=== PATIENT | female | born 1970 | race Caucasian/White ===

== ENCOUNTER 2016-11-17 08:52 | Outpatient (CLI) | payer MEDICAID ==
[2015-10-16 14:36] VITALS: BMI 34.5
[~2016-11-17 08:52] MED LIST: BETAPACE 80 MG80 MG PO; GLIPIZIDE10 MG PO; GLUCOPHAGE500 MG PO
== END 2016-11-17 09:23 ==
LOC: D.MAMMO 08:52
DX: Z12.31 Encounter for screening mammogram for malignant neoplasm of breast (principal)

== ENCOUNTER → 2016-11-24 19:23 | Outpatient (CLI) | payer MEDICAID ==
[2015-10-16 14:36] VITALS: BMI 34.5
== END | disposition home or self-care (01) ==
LOC: D.SLEEP 19:23
DX: G47.33 Obstructive sleep apnea (adult) (pediatric) (principal)

== ENCOUNTER → 2018-01-14 18:10 | Outpatient (CLI) | payer MEDICAID ==
[2015-10-16 14:36] VITALS: BMI 34.5
[~2018-01-14 18:10] MED LIST changes: +CARTIA XT180 MG PO; +IBUPROFEN200 MG PO; +JANUVIA100 MG PO; +OMNICEF300 MG PO; +PROZAC40 MG PO
== END | disposition home or self-care (01) ==
LOC: D.LABREF 18:10
DX: R31.9 Hematuria, unspecified (principal)

== ENCOUNTER 2018-02-23 06:45 | Inpatient (IN) | payer MEDICAID ==
[2018-02-21 10:11] LABS: BASOPHILS 0.2 % (0-2); EOSINOPHILS 2.3 % (0-7); HEMATOCRIT 42.3 % (36.0-48.0); HEMOGLOBIN 14.1 g/dL (12-16); IMMATURE GRANULOCYTES 0.4 % (0-5); LYMPHOCYTES 21.8 % (15-50); MCHC 33.3 g/dL (31.0-37.0); MCV 86.9 fL (80.0-100.0); MEAN PLATELET VOLUME 9.9 fL (7.4-10.4); MONOCYTES 6.2 % (2-11); NEUTROPHILS 69.1 % (40-80); PLATELET COUNT 304 10x3/uL (130-400); RBC 4.87 10x6/uL (4.00-5.40); WBC 8.4 10x3/uL (4.8-10.8)
[2018-02-21 10:24] LABS: CALCIUM 9.1 mg/dL (8.5-10.1); CARBON DIOXIDE 27.1 mmol/L (21.0-32.0); POTASSIUM - SERUM 4.1 mmol/L (3.5-5.1)
[2018-02-21 10:26] LABS: APTT 30.1 SECONDS (22.8-39.4); INR 0.99 (0.85-1.17); PROTIME 12.7 SECONDS (11.6-15.0)
[~2018-02-23] VITALS: Ht 170.2 cm; Wt 116.1 kg
[2018-02-23] VITALS (10 sets, daily range): BP systolic 93–140; BP diastolic 63–84; BMI 34.5; BMI 40.2
--- NOTE | ~2018-02-23 | OP ---
PATIENT NAME: ANAHY CRAIG MEDICAL RECORD: [id number] :70 LOCATION:[facility] ADMISSION DATE:02/23/18 SURGEON: BASIL RAMOS MD DATE OF OPERATION: 02/23/2018 CO-SURGEONS: 1. Basil Ramos MD 2. Basil Urban MD ASSISTANT STORE MANAGER: Paige Humphreys RN ANESTHESIA: General anesthesia with epidural, Kwadwo Tucker CRNA. DIAGNOSIS: Left lower pole renal mass, 6 cm, clinical stage T1b N0 M0. PROCEDURE: Hand-assisted laparoscopic left radical nephrectomy. FINDINGS: Left lower pole renal mass, large ventral hernia. SPECIMENS: Left kidney, adrenal, and ureter. BLOOD LOSS: Minimal. CLINICAL HISTORY: This is a 47-year-old female who is a nonsmoker. She was referred to me for investigation of episodes of gross hematuria. She did not have any flank pain. A CT scan showed a large renal mass in the left lower pole, which is solid and enhances with contrast. It enhances into the renal hilum. The appearance is consistent with renal cell carcinoma. There is no renal vein invasion. There are some enlarged hilar lymph nodes. She also has a very large ventral hernia with small bowel loops enclosed within the hernia. Clinical stage for the presumed left lower pole renal cancer is T1b. She does have some fatigue and episodes of left flank pain, but no bony pain or weight loss. She has normal baseline creatinine and normal liver function tests. A metastatic workup was performed including a CT scan of the chest and a whole body bone scan and this was negative for metastatic disease. Given the large size of the lesion and its invasion into the hilum, she was not a good candidate for partial nephrectomy. Therefore, she will be having a left radical nephrectomy. At the same time, Dr. Urban will repair her large ventral hernia. SHE IS ALLERGIC TO ASPIRIN. She has a history of PSVT. We obtained cardiac clearance from Dr. Pelletier. She was given Ancef on-call to the OR. PROCEDURE IN DETAIL: The patient was given induction of general anesthesia after having been given an epidural. She was in supine position for this. She was then turned into the lateral decubitus position with the left side up. We raised her left side up about 30-45 degrees on a beanbag. All pressure points were padded. She had an indwelling Nuñez catheter placed prior to tilting her into the decubitus position. This was put to bag drainage. The patient is morbidly obese. We therefore could not go through the midline for the hand port placement as I wished initially. We had to go to the left paramedian plane in order to have enough reach of our hands into the most distal portion of kidney and spleen. A 7.5-cm midline left paramedian incision was made just superior to the umbilical level. We went down along the plane of the external oblique and split through the internal oblique and transversus abdominis. The Gelport hand port was then placed. We then placed a 12-mm trocar through the Gelport hand port and started a pneumoperitoneum. Using the laparoscopic camera in the OPERATIVE REPORT [id number] ANAHY CRAIG inferior left paramedian plane, we introduced a 12-mm working port. In the subxiphoid area, we introduced a 12-mm port for the camera. Once we were in, we used the Harmonic scalpel to dissect the peritoneum along the line of Toldt. This was performed from down near the iliac crest all the way to the splenic flexure. This allowed the colon to be mobilized medially with blunt dissection. At the level of the splenic flexure, we took down the lienocolic ligaments between the spleen and the colon. This allowed the colon to drop away from the spleen. We continued this dissection on the undersurface of the spleen until we reached the splenic pedicle. Here, we performed some blunt dissection so that the splenic pedicle was moved away from the anterior surface of the kidney and Gerota's fascia. We continued the blunt dissection posterior to the kidney. We managed to free the posterior surface up easily without any great difficulty. On the medial surface continuing along the level of the splenic dissection, we found the plane between the undersurface of the pancreas and the anterior surface of the kidney. This was gradually dissected away using fingers for blunt dissection. No injury to the spleen or the pancreas was encountered during this dissection. Going into the plane between the kidney and the undersurface of the pancreas, we found the adrenal gland. Going in the opposite direction around the lower pole of the kidney, we dissected the plane between the inferior pole of the kidney and the transverse colon. The transverse colon was gradually away from the Gerota's fascia. We were finally able to place an Endo-DAVID 45 stapler with vascular load across the undersurface of the kidney to take the remaining perinephric fat as well as the ureter. We continued to fire this until we completely transversed the lower pole of the kidney and the tumor contained within it. We were now basically free in all planes except the medial plane. We dissected the hilum of the kidney until we encountered the renal vein and the renal artery immediately posterior to it. We used an Endo-DAVID vascular load to free up the perinephric tissues on the inferior portion and the medial portion of the kidney, just shy of the renal pedicle. Then, another Endo-DAVID 45 vascular load was used to completely transect the renal pedicle. A final Endo-DAVID vascular load was used to completely separate the adrenal from the perinephric tissue. The adrenal was going to come with the kidney in the specimen. Finally, the entire kidney with adrenal and ureter attached was completely free. This was brought to the Gelport hand port site. The lid of the hand port was removed, and through the hand port unit, we were able to completely remove the kidney specimen and send it to pathology. Looking at the renal pedicle and bed, there was no bleeding at all. We irrigated out the wound in the renal fossa. This was then dried up using lap sponge. This lap sponge was then removed. A sheet of Surgicel was laid out flat over the entire renal fossa. At this point, sponge and instrument counts were obtained and they were correct. We had encountered really no bleeding at all during this case. The 12-mm port sites were closed using #0 Vicryl using a Ramon-Elidia needle and apparatus. The Gelport hand port site was then removed and a 2-layer closure using initially a running #1 Vicryl to close peritoneum, transversus abdominis, and internal oblique all-in-one layer. Finally, a looped #0 PDS was used to close the external oblique fascia. All the port sites and the hand port site were closed with nader. The patient will be repositioned in supine position. She will be reprepped and redraped. We will start with a new set of instruments. Dr. Urban will proceed with ventral hernia repair along with Paige Humphreys as the volleyball assistant coach. He will dictate that portion of the surgery separately. TRANSINT:[id number] Voice Confirmation ID: [id number] DOCUMENT ID: [id number] OPERATIVE REPORT [id number] ANAHY CRAIG ROBERT S MD at 0808 CC: [id number] DICTATION DATE: 02/23/18 1347 WIRELINE SUPERVISOR: 02/23/18 1434 ADM IN [place] [id number] [place] [id number]
--- NOTE | ~2018-02-23 | CN ---
PATIENT NAME:ANAHY CASTLE MEDICAL RECORD: [id number] : 70 LOCATION:[facility] AD.2310 ADMIT DATE: 02/23/18 ACCOUNT: [id number] CONSULTING PHYSICIAN: FITZ FRANK MD REFERRING PHYSICIAN: BASIL RAMOS MD DATE OF CONSULTATION: 02/26/2018 CONSULT REQUESTING PHYSICIAN: Dr. Ramos. REASON FOR CONSULTATION: Pulmonary embolism, acute hypoxic respiratory failure. HISTORY OF PRESENT ILLNESS: Ms. Castle is a 47-year-old female who underwent left nephrectomy as well as incarcerated hernia repair. Recently, she was diagnosed with renal carcinoma of the kidney. Postop, the patient has worsening shortness of breath. Workup showed that she has a PE. REVIEW OF SYSTEMS: As in history of present illness. PAST MEDICAL HISTORY: 1. Diabetes mellitus. 2. Obesity. 3. Anxiety, depression. 4. Gastroesophageal reflux disease. 5. Hematuria, diagnosed with renal cell carcinoma of the left kidney. PAST SURGICAL HISTORY: 1. Now, she is status post nephrectomy. 2. Incarcerated hernia repair. ALLERGIES: SHE IS ALLERGIC TO ASPIRIN AND JARDIANCE. MEDICATIONS: On [place] Beauty is reviewed. PERSONAL AND SOCIAL HISTORY: The patient is a nonsmoker, nondrinker. FAMILY HISTORY: Noncontributory. PHYSICAL EXAMINATION: GENERAL: Now, the patient is lying comfortably in bed. She is not in acute distress. VITAL SIGNS: The blood pressure is 124/90, pulse is 103, respiration is 18, temperature is 98.4, and SpO2 is 93% on 16-liter oxymizer. HEENT: Conjunctivae are pink. Sclerae not icteric. NECK: The neck is supple. There is no JVD. CHEST: There is no wheeze, no rale. HEART: Rhythm regular, normal sound, no murmur. There is a loud P2. ABDOMEN: The abdomen is distended, is tender on palpation. No guarding, no rigidity. RECTAL: Deferred. EXTREMITIES: No cyanosis, no clubbing, no pedal edema. CENTRAL NERVOUS SYSTEM: The patient is awake and alert. There are no obvious cranial nerve abnormality. The gait was not tested. LABORATORY DATA: CBC: The WBC is 16.6, hemoglobin is 11.8, hematocrit 37 and the platelet count 221. Chemistry: Sodium is 138, potassium 3.6, BUN is 9, CONSULT REPORT [id number] ANAHY CASTLE creatinine 1.4. ABG: The pH is 7.31, pCO2 is 39.4, the pO2 is 73, bicarbonate is 20.1. IMPRESSION: 1. Acute hypoxic respiratory failure. 2. Metabolic acidosis. 3. Multiple pulmonary embolism. 4. CA kidney, secondary to renal cell carcinoma status post nephrectomy. 5. Morbid obesity. 6. Leukocytosis. RECOMMENDATION: 1. The patient already got a dose of Lovenox. I will hold the Lovenox and start on heparin. In case of bleeding, we can stop the heparin quickly with a short half-life. 2. GI stress ulcer prevention. 3. Follow up labs and chest radiograph. The ultrasound of the lower extremity negative for any DVT. Dr. Ramos, thank you for involving me in the care of Ms. Castle. TRANSINT:[id number] Voice Confirmation ID: [id number] DOCUMENT ID: [id number] FITZ FRANK MD at 1301 CC: [id number] DICTATION DATE: 02/26/18 1610 CRANIOLOGIST: 02/26/18 1704 DIS IN 02/28/18 [facility] [address] [place] [address]
--- NOTE | ~2018-02-23 | OP ---
PATIENT NAME: ANAHY CRAIG MEDICAL RECORD: [id number] :70 LOCATION:.[facility] D.2310 ADMISSION DATE:02/23/18 SURGEON: BASIL DESAI MD DATE OF OPERATION: 02/23/2018 PREOPERATIVE DIAGNOSES: 1. Left renal cancer. 2. Large incisional hernia, incarcerated. POSTOPERATIVE DIAGNOSES: 1. Left renal cancer. 2. Large and incarcerated incisional hernia with inability to approximate the rectus muscles in the midline with standard herniorrhaphy techniques. PROCEDURES: 1. Co-surgeon procedure of left nephrectomy. 2. Open incarcerated incisional hernia repair utilizing the bilateral component separation technique. The myofascial release on the right side was 18.5 cm and on the left side was 19.0 cm. SURGEON: Basil Desai MD ANIMAL TRAINER SUPERVISOR: marci Henriquez techndonal BLOOD LOSS: 100 cc. ANESTHESIA: General. DRAINS: Times 1 (19-Persian round Nuno drain). The risks, possible complications, and alternatives to the procedure were explained to the patient. He elects to proceed. The nephrectomy was a co-surgeon case with Dr. Zheng and myself. Regarding the herniorrhaphy, Dr. Zheng was not present for this procedure and Paige Humphreys scrub technologist, was the speech language pathology assistant for this secondary procedure. OPERATIVE COURSE: The patient was conveyed to the operating room electively on 02/23/2018. General anesthesia was induced by the anesthesia staff. Dr. Zheng positioned the patient. After sterile prep and drape, a left paramedian incision was accomplished. I dissected down to the level of the external oblique aponeurosis. This was incised along the direction of its fibers. I then bluntly dissected down through the internal oblique and the transversus abdominis muscles. The peritoneal cavity was entered sharply. An Tab retractor was placed. On top of the Tab retractor, a Gelport device was placed. I did this portion of the procedure. I placed a 12-mm trocar through the Gelport. CO2 insufflation was begun. Under direct internal vision utilizing a television camera, a 12-mm trocar was inserted in the epigastrium. Another 5-mm trocar was inserted in the left lower quadrant. I then took down the left white line of Toldt. I took down the splenic flexure. I divided the lienocolic ligament. I dissected underneath the pancreas. I mobilized the left colon and folded it medially. I then performed the dissection around the left kidney. I dissected out laterally. I was able to dissect behind the left kidney. I dissected some up along the medial aspect of the left kidney. Dr. Zheng performed some critical dissection as well and this was dictated separately. OPERATIVE REPORT [id number] ANAHY CRAIG We then changed out the left lower quadrant trocar for a 12-mm trocar. I stapled across the area of the adrenal gland with an Endo-DAVID type stapler utilizing a white load. We then stapled across the ureter with an Endo-DAVID type stapler utilizing a white load. I then stapled across the hilum of the kidney with an Endo-DAVID type stapler utilizing white loads. I was able to then deliver the specimen out through the Tab retractor. I irrigated and aspirated in the abdomen. It was quite dry. Nu-Knit was placed underneath the spleen and overlying the stapled renal hilar vessels. I then repositioned the colon in its proper orientation. At the main incision, the internal oblique and transversus abdominis muscles were closed with running #1 Vicryls. The external oblique aponeurosis was closed with running looped #0 PDS. I then temporarily closed the incisions with nader. The patient was then positioned supine. The abdomen was sterilely prepped and draped. Through the use of double curvilinear incisions, I excised redundant skin inferior to the umbilicus. This was performed in order to allow for a more stable closure as the hernia sac was very close to the skin, and as the skin had not been excised, there was a significant chance of necrosis of the skin. I did not use mesh as we stapled across the ureter and there would be the chance of contamination of the mesh. I excised attenuated fascia. I excised the hernia sacs. I was unable to approximate the rectus muscles in the midline. On the left side through the Tab retractor entry site, I dissected out laterally. I identified the external oblique aponeurosis and muscle and this was divided. I then placed my finger underneath the external oblique muscle and was able to divide in cephalad and caudad direction. The dimensions of the myofascial release are listed above. I then performed some additional dissection with my finger anteriorly and posteriorly to allow for better mobilization of the rectus muscles in the midline. Even with this dissection, I was unable to gain primary closure of the rectus muscles in the midline and therefore a bilateral component separation technique was indicated. An incision was accomplished in the right side of the abdomen, which was a parasagittal incision between the anterior-superior iliac spine and the right costal margin. I did dissect it down through the adipose tissue. I then incised the external oblique muscle. I inserted my finger deep to the external oblique muscle and performed some dissection bluntly. I then divided the external oblique muscle and aponeurosis in cephalad and caudad directions. The dimensions of the myofascial release are listed above. I then performed some additional dissection with my finger to release the external oblique from the underlying internal oblique muscle. After doing this, I was able to approximate the rectus abdominis muscles in the midline. I reperitonealized with running #1 Vicryl in the midline. I then had to excise some omentum in order to gain an adequate closure. The rectus sheaths were then approximated with running looped #0 PDS's. At the trocar sites, these were closed with interrupted 3-0 Vicryl sutures in an intracuticular fashion. The incisions where the myofascial releases had been performed were closed with interrupted 3-0 Vicryls for the deep dermis as well as a running intracuticular 3-0 Vicryl. The large midline incision was closed with interrupted 3-0 Vicryls for the deep dermis as well as a drain which was brought out to the right laterally. The drain was sutured to skin with a 2-0 nylon and was placed in the subcutaneous compartment. Through the main incision in the midline, the skin was closed with metallic clips as well as few horizontal mattress 3-0 Vicryls inferiorly. Sterile dressings were applied. The patient was then extubated and conveyed to the postanesthesia care unit, where she was in stable condition. OPERATIVE REPORT [id number] ANAHY CRAIG TRANSINT:[id number] Voice Confirmation ID: [id number] DOCUMENT ID: [id number] BASIL DESAI MD at 1328 CC: OSMAR RAMOS DO, LAI, ROBERT S MD and PER LUKE [id number] DICTATION DATE: 02/23/18 1551 COOLER SUPERVISOR: 02/23/18 1627 DIS IN 02/28/18 [place] [id number] [place] [id number]
--- NOTE | ~2018-02-23 | EC ---
PATIENT:ANAHY CRAIG DATE OF SERVICE: 02/23/18 SEX: F MEDICAL RECORD: [id number] DATE OF : 70 LOCATION:[place] [address] AGE OF PATIENT: 47 ADMISSION DATE: 02/23/18 REFERRING PHYSICIAN: INTERPRETING PHYSICIAN: REZA CHAVEZ MD ECHOCARDIOGRAM REPORT ECHO CHARGES 4 ECHO COMPLETE Date: 02/28/18 CLINICAL DIAGNOSIS: SHOCK/SVT ECHOCARDIOGRAPHIC MEASUREMENTS (adult normal given) AC root (d.<3.7cm) 3.5 cm LV Septum d (<1.2 cm> 1.7 cm Valve Excursion 1.8 cm LV Septum (systole) 2.3 cm Left Atria (s.<4.0cm> 3.2 cm LVPW d(<1.2cm) 1.4 cm RV (d.<2.3cm) 2.7 cm LVPW (sytole) 2.1 cm LV diastole(<5.6CM) 4.5 cm MV E-F(>70mm/sec) cm LV systole 2.1 cm LVOT Diameter 1.9 cm MV exc.(>10mm) cm Est.ejection fraction (50-75%) % DOPPLER: LVIT cm/sec A 44.0 cm/sec E 32.0 cm/sec LA cm/sec RVSP 39.0 mmHg LVOT 89.0 cm/sec AOP1/2T m/s Asc. Ao 115 cm/sec RVOT 42.0 cm/sec RA cm/sec PA 72.0 cm/sec AV Gradient Peak 5.3 mmHg AV Mean 3.0 mmHg AV Area 2.1 cm MV Gradient Peak 2.0 mmHg MV Mean 0.64 mmHg MV Area cm COMMENTS: Pneumatic Systems Operator: Frank SONOE Taker Off Braker Machine: 1 Dr. Chavez TAPE# PACS Pericardial Effusion N DATE OF SERVICE: 02/28/2018 PROCEDURE: Echocardiogram. FINDINGS: 1. Left ventricular chamber size is within normal limits. Left ventricular systolic function is normal. Overall ejection fraction estimated at 50%. 2. Left atrium, right atrium, and right ventricle chamber sizes are within normal limits. No evidence of right ventricular strain or right heart enlargement. ECHOCARDIOGRAM REPORT [id number] ANAHY CRAIG 3. Valvular structures have normal structure and motion. 4. Doppler interrogation reveals only trace tricuspid regurgitation, no other valvular insufficiency or stenosis. Pulmonary systolic pressure is preserved at 39 mmHg. 5. No evidence of pericardial effusion or left ventricular thrombus. TRANSINT:[id number] Voice Confirmation ID: [id number] DOCUMENT ID: [id number] REZA CHAVEZ MD at 1823 CC: [id number] DICTATION DATE: 02/28/18 1253 CASTING MACHINE OPERATOR HELPER: 02/28/18 1323 DIS IN 02/28/18 [facility] [address] [place] [id number]
--- NOTE | ~2018-02-23 | PN ---
PATIENT:ANAHY CRAIG MEDICAL RECORD: [id number] LOCATION:.[facility] D.231 ADMISSION DATE: 02/23/18 PROGRESS NOTE DATE OF SERVICE: 02/28/2018 The patient had a very eventful day. She underwent a rapid response resuscitation earlier this morning due to tachycardia. She was transported to the intensive care unit. She was found to be in septic shock. Central venous line was inserted. An arterial line was inserted. The patient was endotracheally intubated. The patient was quite acidotic. She was oliguric. She underwent a CTA of the chest as well as a CT scan of the abdomen and pelvis. She underwent an echocardiogram as well. Echocardiogram revealed no right heart strain as well as a normal ejection fraction. This indicated that perhaps the pulmonary emboli were not to account for her decompensation. She had a markedly high white count. The CT scan revealed bilateral pulmonary thromboemboli, but there was no saddle embolism and the emboli that I visualized were small to moderately sized. The CT of the abdomen was more interesting. Pertinent findings are that there was no free air. The right colon and proximal transverse colon had severe colitis. This is in an area where we did not even approach during the operation. There is a fluid collection in the left renal fossa as well. There was some free fluid in the pelvis. We felt that it was not going to be necessary to perform any type of thrombolytic therapy on the pulmonary emboli. We did obtain a stool specimen and it was positive for C. difficile colitis. The antigen and the toxin were both positive. Dr. Amador was asked to see the patient in consultation. She is going to plan for a fecal transplant tomorrow. I have been in touch with the patient's family personally all day long. Her vital signs are improved. She is less tachycardic. She is now off pressors. She is making some urine as well. She is still quite critically ill, however. TRANSINT:[id number] Voice Confirmation ID: [id number] DOCUMENT ID: [id number] BASIL DESAI MD at 1328 CC: [id number] DICTATION DATE: 02/28/18 171 MANAGER OF MEDICAL: 02/28/182201 DIS IN 02/28/18 [facility] [address] [place] [address]
--- NOTE | ~2018-02-23 | CN ---
PATIENT NAME:ANAHY CRAIG MEDICAL RECORD: [id number] : 70 LOCATION:[facility] ADMIT DATE: 02/23/18 ACCOUNT: [id number] CONSULTING PHYSICIAN: ZHEN PRUITT MD REFERRING PHYSICIAN: BASIL RAMOS MD DATE OF CONSULTATION: 02/26/2018 REASON FOR CONSULTATION: Shortness of breath. HISTORY OF PRESENT ILLNESS: The patient is a 47-year-old female who had recently had left nephrectomy as well as incarcerated incisional hernia. Apparently over the past 12 hours, the patient has had increasing shortness of breath. She has had tachycardia. Staff had phoned for orders to evaluate. The patient is normally seen by Dr. Hinkle who I am covering for this weekend. PAST MEDICAL HISTORY: Significant that she has had diabetes mellitus, obesity. She has had depression, gastroesophageal reflux. She had microscopic hematuria, which she was found to have renal cell carcinoma of the left kidney. PAST SURGICAL HISTORY: She has had a wrist broken. She has also had a cleft palate repaired in 1970. FAMILY HISTORY: Brother had myocardial infarction and hypertension. Mother has diabetes. MEDICATIONS: Currently include fluoxetine 40 mg once a day, glimepiride 4 mg b.i.d., Januvia 100 mg once a day, metformin 1000 mg b.i.d. ALLERGIES: ASPIRIN, JARDIANCE. SOCIAL HISTORY: The patient is single. She denies any ethanol, tobacco use or abuse. REVIEW OF SYSTEMS: CONSTITUTIONAL: She denies any headaches, seizure or syncope. She denies change in visual or auditory acuity. PULMONARY: The patient does report having a cough. She has had no congestion, no sputum production, has had difficulty with breathing over the past 12 hours. CARDIOVASCULAR: She has had no chest pain, palpitation, PND or orthopnea. GASTROINTESTINAL: No chronic nausea, vomiting, melena, or hematochezia. GENITOURINARY: No frequency or dysuria. PHYSICAL EXAMINATION: VITAL SIGNS: The patient was afebrile. Her pulse rate was 107, respirations were 19. She is on 16 liters O2 oxymizer, pulse ox 90%. Her blood pressure 96/66. HEENT: Head is normocephalic. No lesions. Ears: TMs clear. Eyes: Pupils equal, round and reactive to light. Extraocular movements are intact. Nasal cavity, oral cavity, oropharynx clear. NECK: Supple. There is no adenopathy. HEART: Slightly tachycardic. LUNGS: Decreased breath sounds in all hilario. ABDOMEN: Soft, bowel sounds are positive. The patient does have a drain tube present. Dressing over the anterior abdomen. EXTREMITIES: Lower extremities have no edema. CONSULT REPORT [id number] [facility] CRAIG [facility] DATA: She had a white count of 13.1, hemoglobin 11.3, hematocrit 35.2, her platelets are 196. Sodium is 138, potassium 3.5, chloride is 107, CO2 is 20.8, BUN is 9, creatinine is 1.3, glucose 222. The patient had a D-dimer of 5.02. ASSESSMENT: 1. Status post left nephrectomy, status post repair of incisional abdominal incarcerated hernia. 2. Diabetes mellitus. 3. Morbid obesity. PLAN: The patient's V/Q scan, also have ABGs to rule out pulmonary embolus. TRANSINT:[id number] Voice Confirmation ID: [id number] DOCUMENT ID: [id number] ZHEN PRUITT MD CC: [id number] DICTATION DATE: 02/26/18 1053 SANDSTONE SPLITTER: 02/26/18 1201 ADM IN [facility] [address] [place] [address]
[~2018-02-23 06:45] MED LIST changes: -OMNICEF300 MG PO
[2018-02-23] MEDS ORDERED: OMNICEF300 MG PO (07:21)
[2018-02-23 09:44] LABS: HCG URINE NEGATIVE (NEGATIVE)
[2018-02-24 06:26] VITALS: BP 104/66
[2018-02-24 09:58] VITALS: BP 106/63
[2018-02-24 10:45] LABS: ANION GAP 12.1 mmol/L (8-16); CALCIUM 7.2 mg/dL (8.5-10.1); CARBON DIOXIDE 22.6 mmol/L (21.0-32.0); CREATININE - SERUM 1.2 mg/dL (0.6-1.3); POTASSIUM - SERUM 3.7 mmol/L (3.5-5.1)
[2018-02-24 12:44] VITALS: BP 98/54
[2018-02-24 17:37] VITALS: BP 108/68
[2018-02-24 17:43] VITALS: BP 108/68
[2018-02-24 23:12] VITALS: BP 116/67
[2018-02-25 04:44] VITALS: BP 115/69
[2018-02-25 08:22] VITALS: BP 116/73
[2018-02-25 09:32] LABS: ANION GAP 11.4 mmol/L (8-16); CALCIUM 7.4 mg/dL (8.5-10.1); CARBON DIOXIDE 22.1 mmol/L (21.0-32.0); CREATININE - SERUM 1.4 mg/dL (0.6-1.3); POTASSIUM - SERUM 3.5 mmol/L (3.5-5.1)
[2018-02-25 12:42] VITALS: BP 113/60
[2018-02-25 16:19] VITALS: BP 112/64
[2018-02-25 20:02] LABS: BASOPHILS 0.1 % (0-2); EOSINOPHILS 1.2 % (0-7); HEMOGLOBIN 11.8 g/dL (12-16); IMMATURE GRANULOCYTES 0.4 % (0-5); LYMPHOCYTES 11.1 % (15-50); MCH 28.7 pg (26.0-34.0); MCHC 31.9 g/dL (31.0-37.0); MEAN PLATELET VOLUME 10.6 fL (7.4-10.4); NEUTROPHILS 80.2 % (40-80); RBC 4.11 10x6/uL (4.00-5.40); RDW 13.8 % (11.5-14.5); WBC 16.6 10x3/uL (4.8-10.8)
[2018-02-25 20:09] LABS: PLATELET COUNT 221 10x3/uL (130-400)
[2018-02-25 20:20] LABS: APTT 30.5 SECONDS (22.8-39.4); INR 1.19 (0.85-1.17); PROTIME 14.7 SECONDS (11.6-15.0)
[2018-02-25 20:22] LABS: ALBUMIN 2.6 g/dL (3.4-5.0); ANION GAP 14.1 mmol/L (8-16); BILIRUBIN - TOTAL 0.45 mg/dL (0.2-1.3); CALCIUM 7.6 mg/dL (8.5-10.1); CARBON DIOXIDE 19.5 mmol/L (21.0-32.0); CREATININE - SERUM 1.4 mg/dL (0.6-1.3); POTASSIUM - SERUM 3.6 mmol/L (3.5-5.1)
[2018-02-25 20:28] LABS: D-DIMER-QUANTITATIVE 5.02 ug/mLFEU (0.20-0.54)
[2018-02-26 04:59] VITALS: BP 124/90
[2018-02-26 06:24] LABS: BASOPHILS 0.2 % (0-2); EOSINOPHILS 1.4 % (0-7); HEMATOCRIT 35.2 % (36.0-48.0); HEMOGLOBIN 11.3 g/dL (12-16); IMMATURE GRANULOCYTES 0.5 % (0-5); LYMPHOCYTES 12.6 % (15-50); MCH 28.6 pg (26.0-34.0); MCHC 32.1 g/dL (31.0-37.0); MCV 89.1 fL (80.0-100.0); MEAN PLATELET VOLUME 9.8 fL (7.4-10.4); MONOCYTES 6.9 % (2-11); NEUTROPHILS 78.4 % (40-80); PLATELET COUNT 196 10x3/uL (130-400); RBC 3.95 10x6/uL (4.00-5.40); RDW 13.9 % (11.5-14.5); WBC 13.1 10x3/uL (4.8-10.8)
[2018-02-26 06:33] LABS: APPEARANCE HAZY (CLEAR); SPECIFIC GRAVITY 1.015 (1.005-1.020)
[2018-02-26 06:34] LABS: COLOR GREEN (YELLOW)
[2018-02-26 06:39] LABS: ANION GAP 13.7 mmol/L (8-16); CARBON DIOXIDE 20.8 mmol/L (21.0-32.0); CREATININE - SERUM 1.3 mg/dL (0.6-1.3); POTASSIUM - SERUM 3.5 mmol/L (3.5-5.1)
[2018-02-26 06:41] LABS: WHITE CELLS - URINE OCC /hpf (0-5)
[2018-02-26 06:42] LABS: AMORPHOUS SEDIMENT <1+ /lpf (NONE SEEN); BACTERIA MODERATE /hpf (NONE SEEN); EPITHELIAL CELLS OCC /hpf (0-5); MUCUS <1+ /lpf (NONE SEEN)
[2018-02-26 06:58] VITALS: BP 96/66
[2018-02-26 16:14] VITALS: BP 127/88
[2018-02-26 16:19] LABS: HEMATOCRIT 36.9 % (36.0-48.0); MCH 29.1 pg (26.0-34.0); MCHC 32.5 g/dL (31.0-37.0); MCV 89.3 fL (80.0-100.0); MEAN PLATELET VOLUME 10.1 fL (7.4-10.4); RBC 4.13 10x6/uL (4.00-5.40); RDW 13.8 % (11.5-14.5); WBC 15.1 10x3/uL (4.8-10.8)
[2018-02-26 16:37] LABS: APTT 31.3 SECONDS (22.8-39.4); INR 1.17 (0.85-1.17); PROTIME 14.4 SECONDS (11.6-15.0)
[2018-02-26 20:27] VITALS: BP 135/97
[2018-02-27 01:03] VITALS: BP 140/88
[2018-02-27 04:59] VITALS: BP 135/90
[2018-02-27 05:56] LABS: BASOPHILS 0.1 % (0-2); EOSINOPHILS 1.1 % (0-7); HEMATOCRIT 35.5 % (36.0-48.0); HEMOGLOBIN 11.6 g/dL (12-16); IMMATURE GRANULOCYTES 0.4 % (0-5); LYMPHOCYTES 7.5 % (15-50); MCH 28.5 pg (26.0-34.0); MCHC 32.7 g/dL (31.0-37.0); MEAN PLATELET VOLUME 10.4 fL (7.4-10.4); NEUTROPHILS 83.9 % (40-80); PLATELET COUNT 253 10x3/uL (130-400); RBC 4.07 10x6/uL (4.00-5.40); RDW 13.6 % (11.5-14.5)
[2018-02-27 06:03] LABS: MCV 87.2 fL (80.0-100.0); WBC 19.2 10x3/uL (4.8-10.8)
[2018-02-27 06:18] LABS: ANION GAP 15.9 mmol/L (8-16); CALCIUM 8.1 mg/dL (8.5-10.1); CARBON DIOXIDE 21.5 mmol/L (21.0-32.0); CREATININE - SERUM 1.2 mg/dL (0.6-1.3); POTASSIUM - SERUM 3.4 mmol/L (3.5-5.1)
[2018-02-27 09:41] VITALS: BP 119/89
[2018-02-27 15:53] VITALS: BP 129/95
[2018-02-27 20:05] VITALS: BP 155/102
[2018-02-28] VITALS (36 sets, daily range): BP systolic 00–144; BP diastolic 00–101; Ht 170.2 cm; Wt 116.1 kg
[2018-02-28 04:20] LABS: CALCIUM 8.3 mg/dL (8.5-10.1); CARBON DIOXIDE 22.4 mmol/L (21.0-32.0); CREATININE - SERUM 1.5 mg/dL (0.6-1.3); POTASSIUM - SERUM 3.4 mmol/L (3.5-5.1)
[2018-02-28 04:32] LABS: HEMOGLOBIN 15.2 g/dL (12-16); MCH 29.3 pg (26.0-34.0); MCHC 33.8 g/dL (31.0-37.0); MCV 86.9 fL (80.0-100.0); PLATELET COUNT 318 10x3/uL (130-400); RBC 5.18 10x6/uL (4.00-5.40); RDW 13.6 % (11.5-14.5); WBC 30.5 10x3/uL (4.8-10.8)
[2018-02-28 05:39] LABS: BASOPHILS 1 % (0-2); EOSINOPHILS 2 % (0-7); LYMPHOCYTES 7 % (15-50); MONOCYTES 6 % (2-11); NEUTROPHILS 78 % (40-80); PLATELET ESTIMATE INCREASED
[2018-02-28 11:11] LABS: BASOPHILS 0.3 % (0-2); EOSINOPHILS 0.2 % (0-7); HEMATOCRIT 41.7 % (36.0-48.0); HEMOGLOBIN 14.1 g/dL (12-16); IMMATURE GRANULOCYTES 7.9 % (0-5); LYMPHOCYTES 8.1 % (15-50); MCH 29.4 pg (26.0-34.0); MCHC 33.8 g/dL (31.0-37.0); MCV 86.9 fL (80.0-100.0); MEAN PLATELET VOLUME 10.7 fL (7.4-10.4); MONOCYTES 7.8 % (2-11); NEUTROPHILS 75.7 % (40-80); PLATELET COUNT 281 10x3/uL (130-400); RDW 13.6 % (11.5-14.5); WBC 36.3 10x3/uL (4.8-10.8)
[2018-02-28 11:21] LABS: INR 1.33 (0.85-1.17)
[2018-02-28 11:26] LABS: ALBUMIN 1.4 g/dL (3.4-5.0); BILIRUBIN - TOTAL 0.39 mg/dL (0.2-1.3); CALCIUM 7.1 mg/dL (8.5-10.1); CARBON DIOXIDE 21.7 mmol/L (21.0-32.0); CREATININE - SERUM 2.2 mg/dL (0.6-1.3); POTASSIUM - SERUM 3.7 mmol/L (3.5-5.1); PROTEIN - SERUM 5.5 g/dL (6.4-8.2)
[2018-02-28 11:29] LABS: D-DIMER-QUANTITATIVE 6.56 ug/mLFEU (0.20-0.54)
[2018-02-28 11:30] LABS: APTT 51.8 SECONDS (22.8-39.4)
[2018-02-28 11:52] LABS: CKMB 6.2 U/L (0.0-3.6); CREATINE KINASE 256 UL (21-215)
[2018-02-28 11:57] LABS: TROPONIN-I 0.492 ng/mL (0.000-0.060)
[2018-02-28 23:16] LABS: ALBUMIN 1.1 g/dL (3.4-5.0); ALKALINE PHOSPHATASE 150 U/L (46-116); BILIRUBIN - TOTAL 0.24 mg/dL (0.2-1.3); CALCIUM 7.3 mg/dL (8.5-10.1); CARBON DIOXIDE 21.2 mmol/L (21.0-32.0); CHLORIDE - SERUM 97 mmol/L (98-107); CKMB 2.1 U/L (0.0-3.6); GLUCOSE 394 mg/dL (74-106); PROTEIN - SERUM 4.9 g/dL (6.4-8.2); SODIUM 135 mmol/L (136-145)
[2018-02-28 23:17] LABS: ALT (SGPT) 1233 U/L (10-68); CALC OSMOLALITY 290 mosm/kg (275-300); CREATINE KINASE 424 UL (21-215); CREATININE - SERUM 3.5 mg/dL (0.6-1.3); POTASSIUM - SERUM 5.1 mmol/L (3.5-5.1); TROPONIN-I 0.302 ng/mL (0.000-0.060); UREA NITROGEN 26 mg/dL (7-18); eGFR NON AFRICAN AMERICAN 15 mL/min (90-120)
[2018-03-01 08:23] LABS: HAPTOGLOBIN 365 mg/dL (34-200)
[2018-03-02 10:16] LABS: PROTEIN S - FREE 64 % (57-157); PROTEIN S - TOTAL 90 % (60-150)
[2018-03-02 12:17] LABS: LUPUS - INTERPRETATION Comment: (()); LUPUS - THROMBIN TIME 14.9 sec (0.0-23.0); LUPUS - dRVVT 43.4 sec (0.0-47.0); PTT-LA 48.5 sec (0.0-51.9)
[2018-03-02 13:18] LABS: PROTEIN S - FREE 52 % (57-157); PROTEIN S - FUNCTIONAL 56 % (63-140); PROTEIN S - TOTAL 93 % (60-150)
[2018-03-03 13:20] LABS: PROTEIN C - ANTIGEN 89 % (60-150); PROTEIN C - FUNCTIONAL 112 % (73-180)
== END 2018-02-28 23:00 | DRG 656 ==
LOC: D.SDCHOLD 06:45 → D.ICU 06:45 → D.MS 06:45 → D.SDCHOLD 09:00 → D.ICU 17:02 → D.MS 22:59 → D.ICU 02-28 09:49
PROVIDERS: Anesthesiology; Family Medicine; Internal Medicine Nephrology; Internal Medicine Pulmonary Disease; Surgery; Urology
PROC: 0TT10ZZ Resection of Left Kidney, Open Approach (ICD-10-PCS; principal; 2018-02-23 09:00)
PROC: 0WQF0ZZ Repair Abdominal Wall, Open Approach (ICD-10-PCS; 2018-02-23 09:00)
PROC: 5A1935Z Respiratory Ventilation, Less than 24 Consecutive Hours (ICD-10-PCS; 2018-02-28)
PROC: 0BH17EZ Insertion of Endotracheal Airway into Trachea, Via Natural or Artificial Opening (ICD-10-PCS; 2018-02-28)
PROC: 0W9F3ZZ Drainage of Abdominal Wall, Percutaneous Approach (ICD-10-PCS; 2018-02-28)
PROC: 0W9J3ZZ Drainage of Pelvic Cavity, Percutaneous Approach (ICD-10-PCS; 2018-02-28)
PROC: 4A133B1 Monitoring of Arterial Pressure, Peripheral, Percutaneous Approach (ICD-10-PCS; 2018-02-28)
PROC: 4A133J1 Monitoring of Arterial Pulse, Peripheral, Percutaneous Approach (ICD-10-PCS; 2018-02-28)
PROC: 05HN33Z Insertion of Infusion Device into Left Internal Jugular Vein, Percutaneous Approach (ICD-10-PCS; 2018-02-28)
DX: C64.2 Malignant neoplasm of left kidney, except renal pelvis (principal); J96.01 Acute respiratory failure with hypoxia; A41.9 Sepsis, unspecified organism; R65.21 Severe sepsis with septic shock; I26.99 Other pulmonary embolism without acute cor pulmonale; Z68.41 Body mass index [BMI] 40.0-44.9, adult; I47.1 Supraventricular tachycardia; E87.2 Acidosis; A04.72 Enterocolitis due to Clostridium difficile, not specified as recurrent; N17.9 Acute kidney failure, unspecified; Z66 Do not resuscitate; K43.2 Incisional hernia without obstruction or gangrene; E66.01 Morbid (severe) obesity due to excess calories